=== PATIENT | male | born 1955 | race American Indian/Alaskan Native ===

== ENCOUNTER 2017-06-29 17:21 | Emergency (ER) | payer OTHER, BC ==
[2017-06-29 17:27] VITALS: BP 121/70; PULSE 78; RESP 20; TEMP 98; O2SAT 96
--- NOTE | 2017-06-29 18:32 | C.PDOC ---
History Of Present Illness 61 y/o male presents to the ED for evaluation of right hand injury. States that 7 days ago he was at work and accidentally hit the hand against a door. Denies focal weakness, numbness, or tingling. Patient reports when moving the right 5th digit, he feels pain shooting up the forearm. Time Seen by Provider: 06/29/17 17:41 Chief Complaint (Nursing): Finger,Hand,&Wrist History Per: Patient History/Exam Limitations: no limitations Onset/Duration Of Symptoms: Days Current Symptoms Are (Timing): Still Present Past Medical History Reviewed: Historical Data, Nursing Documentation, Vital Signs Vital Signs: Last Vital Signs Temp 98 F 06/29/17 17:23 Pulse 78 06/29/17 17:23 Resp 20 06/29/17 19:53 BP 121/70 06/29/17 17:23 Pulse Ox 96 06/29/17 21:14 - Medical History PMH: Diabetes Surgical History: No Surg Hx Family History: States: No Known Family Hx - Social History Hx Alcohol Use: No Hx Substance Use: No - Immunization History Hx Influenza Vaccination: Yes (10/2016) Hx Pneumococcal Vaccination: Yes (2016) Review Of Systems Except As Marked, All Systems Reviewed And Found Negative. Musculoskeletal: Positive for: Arm Pain Neurological: Negative for: Weakness, Numbness Physical Exam - Physical Exam Appears: Non-toxic, No Acute Distress Skin: Normal Color, Warm, Dry Head: Atraumatic, Normacephalic Eye(s): bilateral: Normal Inspection, PERRL, EOMI Oral Mucosa: Moist Neck: Normal ROM Chest: Symmetrical Extremity: Normal ROM, Tenderness (over the right 5th metacarpal bone), Capillary Refill (< 2 sec), Swelling (over the right 5th metacarpal bone) Pulses: Left Radial: Normal, Right Radial: Normal Neurological/Psych: Oriented x3, Normal Speech, Normal Sensation ED Course And Treatment O2 Sat by Pulse Oximetry: 96 (RA) Pulse Ox Interpretation: Normal - Other Rad XR R HAND X-Ray: Interpreted by Me, Viewed By Me Interpretation: Non-displaced comminuted fracture of the 5th metacarpal bone Progress Note: Patient informed of x-ray results. Ulnar gutter splint was applied by me. Arm sling applied by gi technician. Patient is stable for d/c home. Advised to follow up with hand specialist. Disposition Counseled Patient/Family Regarding: Studies Performed, Diagnosis, Need For Followup - Disposition Referrals: Steven Ruiz MD [Staff Provider] - Disposition: HOME/ ROUTINE Disposition Time: 18:29 Condition: STABLE Additional Instructions: Follow up with hand specialist within 2-3 days. Return to ED if feel worse. Instructions: Hand Fracture (DC) Forms: [employer] (Maldivian) - POA Present On Arrival: Falls Or Trauma - Clinical Impression Clinical Impression: Fracture, metacarpal - PA / [employer] APPLICATION DEVELOPER / Resident Statement MD/DO has reviewed & agrees with the documentation as recorded. - Scribe Statement The provider has reviewed the documentation as recorded by the Scribe (Franny Valdez) All medical record entries made by the Scribe were at my direction and personally dictated by me. I have reviewed the chart and agree that the record accurately reflects my personal performance of the history, physical exam, medical decision making, and the department course for this patient. I have also personally directed, reviewed, and agree with the discharge instructions and disposition.
--- NOTE | 2017-06-30 08:34 | RAD ---
PROCEDURE: Right Hand Radiographs. HISTORY: hand injury COMPARISON: None. FINDINGS: BONES: Nondisplaced fracture mid 5th metacarpal diaphysis. No other fracture identified. JOINTS: Normal. No osteoarthritic changes. SOFT TISSUES: Normal. OTHER FINDINGS: None. IMPRESSION: Nondisplaced 5th metacarpal diaphysis fracture.
== END 2017-06-29 19:52 | disposition home or self-care (01) ==
LOC: C.ER 17:21
DX: S62.396A Other fracture of fifth metacarpal bone, right hand, initial encounter for closed fracture (principal); W22.8XXA Striking against or struck by other objects, initial encounter; Y92.89 Other specified places as the place of occurrence of the external cause; Y99.0 Civilian activity done for income or pay